=== PATIENT | female | born 1975 | race American Indian/Alaskan Native ===

== ENCOUNTER 2018-02-18 11:21 | Outpatient (CLI) | payer BC ==
--- NOTE | 2018-02-18 15:18 | Fluoroscopy Report ---
UGI WITH AIR WITH KUB INDICATION: Nausea, vomiting. Gastric sleeve in May 2017. GERD. COMPARISON: None similar at this institution. FINDINGS: Upper GI exam performed. Patient swallowed thick and thin barium without any difficulty. Patient hesitant to take effervescent granules and were not administered. Thermometer Maker radiograph demonstrates nonobstructive bowel gas pattern and anastomotic justice in the left upper quadrant. Esophagus is normal in course and caliber. Normal peristalsis and mucosal pattern, to the extent assessed. No demonstrable hiatal hernia. Moderate gastroesophageal reflux noted up to proximal to mid esophagus as on image 14. Normal residual stomach with prompt passage of contrast beyond into the duodenum and proximal small bowel. CONCLUSION: GERD noted in this patient with gastric sleeve surgery, as described. Please correlate. Thank you for the opportunity to participate in this patient's care.
== END 2018-02-18 11:22 | disposition home or self-care (01) ==
LOC: FLUORO 11:21
PROVIDERS: ATTEND Specialist
DX: K21.9 Gastro-esophageal reflux disease without esophagitis (principal); R11.2 Nausea with vomiting, unspecified
CPT/HCPCS: 74247